=== PATIENT | male | born 1995 | race Hispanic/Latino ===

== ENCOUNTER 2021-05-25 17:41 | Emergency (ER) | payer SELFPAY ==
[~2021-05-25] VITALS: Ht 154.9 cm; Wt 53.6 kg
[2021-05-25 17:42] VITALS: BP 107/65
[2021-05-25] MEDS ORDERED: MAG/ALUM/SIMETH 30 ML UDCUP PO ONE (18:00)
[2021-05-25] MEDS ORDERED: LIDOCAINE HCL 2% VISCOUS 15 ML UDCUP ONE (18:03)
== END 2021-05-25 18:27 | disposition home or self-care (01) ==
LOC: EDH 17:41
DX: S10.11XA Abrasion of throat, initial encounter (principal); Z88.0 Allergy status to penicillin; X58.XXXA Exposure to other specified factors, initial encounter; Y93.89 Activity, other specified; Y92.89 Other specified places as the place of occurrence of the external cause; Y99.8 Other external cause status

== ENCOUNTER 2021-06-25 15:00 | Emergency (ER) | payer SELFPAY ==
[~2021-06-25] VITALS: Ht 175.3 cm; Wt 51.7 kg
[2021-06-25 15:26] LABS: APPEARANCE,URINE Clear (CLEAR); BILIRUBIN,URINE Small (NEGATIVE); COLOR,URINE Dark Yellow (YELLOW); GLUCOSE, URINE (UA) Negative (NEGATIVE); KETONES,URINE >=160 mg/dL (NEGATIVE); LEUKOCYTE ESTERASE ,URINE Moderate (NEGATIVE); NITRATE,URINE Negative (NEGATIVE); OCCULT BLOOD,URINE Trace (NEGATIVE); PH,URINE 5.5 (5.0-8.0); PROTEIN,URINE POS 1+ mg/dL (NEGATIVE)
[2021-06-25 15:52] LABS: BACTERIA,URINE Few /HPF (None Seen); MUCUS,URINE Few LPF (None Seen); RBC,URINE 0-1 /HPF (0-1); SQUAMOUS EPITHELIAL CELL,UR Few /HPF (0-2)
[2021-06-25] MEDS ORDERED: AZITHROMYCIN 250 MG TABLET PO ONE (16:00)
[2021-06-25] MEDS ORDERED: CEFTRIAXONE 1G VIAL IM ONE (16:00)
[2021-06-25] MEDS ORDERED: LIDOCAINE HCL-MPF 1% 2ML VIAL ONE (16:14)
[2021-06-25] MEDS ORDERED: CEPH500B PO (16:37)
[2021-06-25 17:00] VITALS: BP 111/62
== END 2021-06-25 17:07 | disposition home or self-care (01) ==
LOC: EDH 15:00
DX: N39.0 Urinary tract infection, site not specified (principal)
CPT/HCPCS: 81001; 87088; 87486; 87797; 96372; 99283; J0696; J3490